=== PATIENT | male | born 2005 | race Caucasian/White ===

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

== ENCOUNTER 2023-08-07 16:05 | Emergency (ER) | payer OTHER, SELFPAY ==
--- NOTE | ~2023-08-07 | XR_ITS ---
XR elbow RT min 3V 08/07/2023 16:35 Indication: Right elbow pain Procedure: 5 views right elbow Comparison: No prior studies for comparison. Findings: Comminuted displaced intra-articular fracture radial head. Large joint effusion. No foreign bodies. Impression: 1: Comminuted displaced intra-articular fracture radial head. 2: Large joint effusion. Reviewed, dictated and finalized at location . [facility] Impression: 1: Comminuted displaced intra-articular fracture radial head. 2: Large joint effusion.
[2023-08-07 16:16] VITALS: BP 125/87; PULSE 90; RESP 16; TEMP 36.9; O2SAT 100
--- NOTE | 2023-08-07 16:41 | ED.UPPEXIN ---
HPI - Extremity Injury (Upper) General Chief Complaint: Extremity Injury, Upper Stated Complaint: right arm injury Time Seen by Provider: 08/07/23 16:11 Source: patient and family Mode of arrival: ambulatory Limitations: no limitations History of Present Illness HPI narrative: Kenny is a 18-year-old male patient presenting to the clinic today with complaints of right elbow pain x1 day. He reports he fell down some stairs at his house yesterday and injured the elbow and hit his head. He denies any head pain, loss of consciousness, or neck pain at this time. Is strictly concerned about the right elbow. Is having pain with flexion and extension of the elbow as well as swelling. Related Data Home Medications Medication Instructions Recorded Confirmed methylphenidate HCl 20 mg chewable 20 mg PO DIRECTED 09/16/22 08/07/23 tablet immed and exten.release 24 hr ([facility]) Allergies Allergy/AdvReac Type Severity Reaction Status Date / Time No Known Allergies Allergy Verified 09/16/22 10:59 Review of Systems Review of Systems: Pertinent positives per HPI. Patient denies any fever, chills, rash, headache, visual changes, dizziness, cough, runny nose, sore throat, shortness of breath, chest pain, palpitations, nausea, vomiting, diarrhea, constipation, abdominal pain, or any urinary issues. PMFSH Comments At the time of my signature, I reviewed and agree with the nursing past medical, surgical, social, and family history. There is no relevant family history pertinent to the patient complaint. Exam Narrative: General: Well-developed, well nourished, in no apparent distress Head: Normocephalic, atraumatic. Cardio: Regular rate and rhythm, s1 and s2 normal, no murmur appreciated. Resp: Clear to auscultation bilaterally, no rhonchi, rales, wheezing or rubs. Musculoskeletal: No deformity, swelling with mild redness noted to the right elbow, tender to palpation over the posterior and anterior elbow, pain with flexion and extension of the elbow as well as supination and pronation, muscle strength strong and equal, peripheral pulse strong, no edema, no cyanosis, normal gait and station Course Course Emergency Course: Portions of this record may have been created with voice recognition software. Level of Care: Express Care Visit Vital Signs Vital signs: Vital Signs Temperature 36.9 C 08/07/23 16:16 Pulse Rate 90 08/07/23 16:16 Respiratory Rate 16 08/07/23 16:16 Blood Pressure 125/87 08/07/23 16:16 Pulse Oximetry 100 08/07/23 16:16 Oxygen Delivery Room Air 08/07/23 16:16 Temperature 36.9 C 08/07/23 16:16 Pulse Rate 90 08/07/23 16:16 Respiratory Rate 16 08/07/23 16:16 Blood Pressure 125/87 08/07/23 16:16 Pulse Oximetry 100 08/07/23 16:16 Oxygen Delivery Room Air 08/07/23 16:16 Vital signs reviewed MDM - Extremity Injury (Upper) MDM Narrative Medical decision making narrative: At the time of visit patient is resting comfortably on the exam table. Patient appears to be nontoxic. Diagnostics: X-ray of the right elbow shows a comminuted intra-articular fracture of the right radial head with a large joint effusion Plan: Posterior long-arm OCL splint applied, arm sling was given. Hoff give referral to Dr. Fletcher and Dr. Maier-[facility] orthopedics. Mother reports that patient still can be seen at [facility] and would like referral there is well. No use of the right arm until cleared by orthopedic provider. Supportive measures were discussed with the patient and they voiced understanding discharge instructions and agrees to treatment plan. Return precautions reviewed Differential Diagnosis Differential diagnosis: Likely other (Radial head fracture, ulnar fracture, humeral fracture, contusion, soft tissue injury, joint effusion) Imaging Data Radiologist's impression: ITS Impressions Elbow X-Ray 08/07/23 16:37 Impression: 1: Comminu
== END 2023-08-07 17:15 | disposition home or self-care (01) ==
PROVIDERS: Emergency Provider Nurse Practitioner Family; PCP Pediatrics
DX: S52.121A Displaced fracture of head of right radius, initial encounter for closed fracture (principal); W10.9XXA Fall (on) (from) unspecified stairs and steps, initial encounter; M25.421 Effusion, right elbow; F90.9 Attention-deficit hyperactivity disorder, unspecified type
CPT/HCPCS: 29105; 73080; 99214; A4565; G0463

== ENCOUNTER 2024-03-23 11:50 | Emergency (ER) | payer OTHER, SELFPAY ==
--- NOTE | ~2024-03-23 | XR_ITS ---
Clinical Indication: Cough PA and lateral views of the chest: Comparison: 07/20/2008 Findings: The lungs are clear, without evidence of focal consolidation or pleural effusion. Cardiome diastinal silhouette is within normal limits. Bones and soft tissues are unremarkable. Impression: Normal chest. Reviewed, dictated and finalized at [facility]. Impression: Normal chest.
--- NOTE | 2024-03-23 11:52 | ED.URI ---
HPI - URI/Sore Throat General Chief Complaint: Upper Respiratory Infection Stated Complaint: cough,runny nose,runny eyes Time Seen by Provider: 03/23/24 12:00 Source: patient, RN notes reviewed and old records reviewed Mode of arrival: ambulatory Limitations: no limitations History of Present Illness HPI Narrative: 18-year-old male presents to the [facility] with all, runny nose and watery eyes that started about 2 weeks ago. Has had increased runny nose postnasal drainage. Onset (ago): week(s) (2) Treatments prior to arrival: cold medicine Related Data Home Medications Medication Instructions Recorded Confirmed methylphenidate HCl 20 mg biphasic 20 mg PO QAM 03/23/24 03/23/24 50-50 capsule,extended release Allergies Allergy/AdvReac Type Severity Reaction Status Date / Time No Known Allergies Allergy Verified 03/23/24 11:52 Review of Systems Review of Systems: All systems reviewed & are unremarkable except as noted in HPI and below Constitutional: Constitutional: Reports no additional constitutional complaints Eyes: Eyes: Reports no additional eye complaints ENT: Reports as per HPI Cardiovascular: Cardiovascular: Reports no additional cardiovascular complaints, Denies chest pain and Denies dyspnea Respiratory: Respiratory: Reports as per HPI, Denies chest congestion, Reports cough and Denies dyspnea Gastrointestinal: Gastrointestinal: Reports no additional gastrointestinal complaints, Denies abdominal pain, Denies nausea and Denies vomiting Musculoskeletal: Musculoskeletal: Reports no additional musculoskeletal complaints Integumentary/Breasts: Skin/Breast: Reports system reviewed and no additional complaints, except as docu Neurologic: Reports system reviewed and no additional complaints, except as documented Psychiatric: Psychiatric: Reports no additional psychiatric complaints Allergic/Immunologic: Allergic/Immunologic: Reports no additional allergic/immunologic complaints PMFSH Family History Family History Unknown Hypertension Social History Social History Social History: caffeine use Smoking status: Never smoker Alcohol intake: never Substance use: never Comments At the time of my signature, I reviewed and agree with the nursing past medical, surgical, social, and family history. There is no relevant family history pertinent to the patient complaint. Exam Const: General: cooperative, healthy appearing, comfortable, no acute distress, well developed, alert and well nourished Nutritional Appearance: well nourished Orientation/consciousness: patient oriented x3 Limitations: no limitations HENMT: Head: normal to inspection Ears: hearing grossly normal bilaterally, external ears normal, TM's normal bilaterally, EAC's normal, mastoids normal and no periauricular adenopathy Face/Nose/Sinus: Normal external nose present, Normal nares present, Normal nasal mucous membranes and turbinates present, Nasal discharge present clear bilateral, normal facial exam and face symmetric Face and sinus: normal facial exam and face symmetric Mouth: Yes Normal oral and palatal mucosa present, Yes lip normal and Yes tongue normal Throat: uvula midline, postnasal drainage and no uvular edema Eyes: General: appearance normal, both eyes and all related structures Alignment and Position: alignment normal Periorbital: periorbital findings normal Pupils: Equal, round and reactive pupils present EOM: EOMs intact bilaterally Neck: Neck: normal visual inspection, full ROM, no lymphadenopathy and no meningeal signs Chest: Chest palpation & inspection: normal inspection of the chest Resp: Effort & Inspection: normal respiratory effort and able to speak in complete sentences Auscultation: clear to auscultation bilaterally, no crackles, no rales, no rhonchi and no wheezes Cardio: Rate: regular rate
[2024-03-23 12:00] VITALS: BP 128/83; PULSE 75; RESP 16; TEMP 36.8; O2SAT 99
== END 2024-03-23 12:47 | disposition home or self-care (01) ==
PROVIDERS: Emergency Provider Nurse Practitioner; PCP Pediatrics
DX: J40 Bronchitis, not specified as acute or chronic (principal); R09.82 Postnasal drip; F90.9 Attention-deficit hyperactivity disorder, unspecified type
CPT/HCPCS: 71046; 99213; G0463